=== PATIENT | male | born 1945 | race Caucasian/White ===

== ENCOUNTER 2016-06-04 11:38 | Emergency (ER) | payer OTHER ==
[~2016-06-04] VITALS: Ht 170.2 cm; Wt 91.0 kg
[2016-06-04 12:40] LABS: EOSINOPHIL (%) 1.4 % (0-5); EOSINOPHIL COUNT 0.1 K/uL (0-0.3); HEMATOCRIT 39.6 % (38.0-50.0); IMMATURE GRANULOCYTE (%) 0.2 % (0.0-0.7); IMMATURE GRANULOCYTE COUNT 0.1 K/uL; LYMPHOCYTE COUNT 0.8 K/uL (1.0-2.8); MCH 32.6 PG (29.0-34.0); MCHC 35.6 G/DL (30.0-36.0); MCV 91.5 FL (86-99); MEAN PLAT.VOLUME 10.6 uM^3 (9.0-12.4); MONOCYTE (%) 14.3 % (3-12); MONOCYTE COUNT 0.6 K/uL (0-0.8); NEUTROPHIL (%) 64.5 % (45-76); NEUTROPHIL COUNT 2.7 K/uL (1.8-6.4); PLATELET COUNT 136 K/uL (156-360); RBC DIS.WIDTH-CV 12.1 % (11.8-14.6); RBC DIS.WIDTH-SD 39.4 % (39-53); RED BLOOD COUNT 4.33 M/uL (4.00-5.50); WHITE BLOOD COUNT 4.2 K/uL (4.1-10.2)
[2016-06-04 12:48] LABS: CHLORIDE 105 mEq/L (99-109); SODIUM 138 mEq/L (136-147)
[2016-06-04 12:50] LABS: GLUCOSE 118 mg/dL (70-99)
[2016-06-04 12:51] LABS: ANION GAP 11 MEQ/L (2-14)
[2016-06-04 12:54] LABS: GFR ESTIMATE (CALCULATED) > 59 mL/min/
[2016-06-04 12:55] LABS: UREA NITROGEN (BUN) 10 mg/dL (9-23)
[2016-06-04 13:01] LABS: TROP-I INTERPRETATION NEGATIVE; TROPONIN-I < 0.01 ng/mL (0.0-0.30)
[2016-06-04] MEDS ORDERED: ZOFRAN ODT4 MG PO (13:12)
[2016-06-04] MEDS ORDERED: GLIPIZIDE5 MG PO (13:16)
[2016-06-04] MEDS ORDERED: NASACORT10.8 ML BOTH NARES (13:17)
[2016-06-04] MEDS ORDERED: LOPRESSOR100 M1 PO (13:17)
[2016-06-04] MEDS ORDERED: APRESOLINE50 MG PO (13:17)
[2016-06-04] MEDS ORDERED: TEGRETOL100 MG PO (13:17)
[2016-06-04] MEDS ORDERED: ZYRTEC10 M2 PO (13:18)
[2016-06-04] MEDS ORDERED: ULTRAM ER200 MG PO (13:18)
[2016-06-04] MEDS ORDERED: VITAMIN E400 UNIT PO (13:18)
[2016-06-04] MEDS ORDERED: COZAAR100 MG PO (13:18)
[2016-06-04] MEDS ORDERED: ZANTAC150 MG PO (13:19)
[2016-06-04] MEDS ORDERED: PRAVASTATIN SOD80 MG PO (13:19)
[2016-06-04] MEDS ORDERED: GRALISE600 MG PO (13:20)
[2016-06-04] MEDS ORDERED: FLOMAX0.4 MG PO (13:20)
[2016-06-04] MEDS ORDERED: ASPIR 8181 M1 PO (13:20)
[2016-06-04 13:42] VITALS: BP 146/85
== END 2016-06-04 14:10 ==
LOC: EME → EDBD 11:38 → EME 14:10
PROVIDERS: Emergency Medicine
DX: I10 Essential (primary) hypertension (principal); R11.2 Nausea with vomiting, unspecified; R05 Cough; J02.9 Acute pharyngitis, unspecified; E78.5 Hyperlipidemia, unspecified; E11.9 Type 2 diabetes mellitus without complications; Z95.1 Presence of aortocoronary bypass graft; Z95.5 Presence of coronary angioplasty implant and graft; Z87.891 Personal history of nicotine dependence; Z79.82 Long term (current) use of aspirin
CPT/HCPCS: 80048; 84484; 85025; 93005; 99281; 99285; J0360